=== PATIENT | female | born 1965 | race Hispanic/Latino ===

== ENCOUNTER 2017-12-29 20:03 | Observation (INO) | payer MEDICAID ==
[2017-12-29 20:37] VITALS: BMI 26.5
[2017-12-29] MEDS ORDERED: Albuterol-Ipratrop 3 mg / 0.5 (3 ml) UD IH STA (21:29)
[2017-12-29] MEDS ORDERED: Albuterol 0.083% Inhal Sol (2.5 mg/3 mL) UD INH STA (21:29)
[2017-12-29] MEDS ORDERED: Azithromycin 500MG/NS 250ml 500 MG/250 ML BAG IVPB STA (21:32)
[2017-12-29] MEDS ORDERED: cefTRIAXone 1 gm 1 GM/100 ML BAG IVPB STA (21:32)
--- NOTE | 2017-12-29 21:39 | ED PDOC ---
Arrival/HPI - General Chief Complaint: Shortness Of Breath Time Seen by Provider: 12/29/17 21:05 Historian: Patient - History of Present Illness Narrative History of Present Illness (Text): 12/29/17 21:33 52 year old female, whose past medical history includes, Asthma, Depression, COPD (noncompliant with medication), and Colitis, presents to the emergency department complaining of shortness of breath. Patient reports she is noncompliant with medication and following doctors advice in COPD treatment. Patient continues to smoke even though she has COPD. Patient reports chronic cough and yellow sputum, but denies any fever, chills, chest pain, abdominal pain, nausea, vomiting, diarrhea, urinary symptoms, back pain, neck pain, headache, dizziness, or any other complaints. PMD: Dr. Demetra Quiroz Symptom Onset: Gradual Symptom Course: Unchanged Activities at Onset: Light Context: Home Past Medical History - Provider Review Nursing Documentation Reviewed: Yes - Infectious Disease Hx of Infectious Diseases: None - Tetanus Immunization Tetanus Immunization: Unknown - Past Medical History Past Medical History: No Previous - Cardiac Hx Cardiac Disorders: No Hx Hypertension: No - Pulmonary Hx Respiratory Disorders: Yes Hx Asthma: Yes Hx Chronic Obstructive Pulmonary Disease (COPD): Yes - Neurological Hx Neurological Disorder: No Hx Seizures: No - HEENT Hx HEENT Disorder: No - Renal Hx Renal Disorder: No - Endocrine/Metabolic Hx Endocrine Disorders: No - Hematological/Oncological Hx Hepatitis C: Yes - Integumentary Hx Dermatological Disorder: No - Musculoskeletal/Rheumatological Hx Musculoskeletal Disorders: Yes Hx Arthritis: Yes Hx Back Pain: Yes Hx Rheumatoid Arthritis: Yes - Gastrointestinal Hx Gastrointestinal Disorders: Yes Hx Colitis: Yes - Genitourinary/Gynecological Hx Genitourinary Disorders: No Hx Sexually Transmitted Diseases: No - Psychiatric Hx Psychophysiologic Disorder: Yes Hx Anxiety: Yes Hx Depression: Yes Hx Substance Use: No - Past Surgical History Past Surgical History: No Previous - Anesthesia Hx Anesthesia: Yes Hx Anesthesia Reactions: No Hx Malignant Hyperthermia: No - Suicidal Assessment Feels Threatened In Home Enviroment: No Family/Social History - Physician Review Nursing Documentation Reviewed: Yes Family/Social History: No Known Family HX Smoking Status: Heavy Smoker > 10 Cigarettes Daily Hx Alcohol Use: No Hx Substance Use: No Substance used: cocaine iv Hx Substance Use Treatment: No Allergies/Home Meds Allergies/Adverse Reactions: Allergies ibuprofen Allergy (Verified 09/19/16 09:40) RASH Milk Containing Products Allergy (Verified 09/19/16 09:40) RASH naproxen [From Naprosyn] Allergy (Verified 09/19/16 09:40) RASH tomato Allergy (Verified 09/19/16 09:40) RASH wheat Allergy (Verified 09/19/16 09:40) RASH Home Medications: Home Meds Medication Instructions Recorded Confirmed Albuterol HFA [Ventolin HFA 90 2 puff IH PRN PRN 09/19/16 12/29/17 mcg/actuation (8 g)] Escitalopram [Lexapro] 20 mg PO DAILY 09/19/16 12/29/17 ALPRAZolam HALF TABLET [Xanax] 1 tab PO PRN PRN 12/29/17 12/29/17 Review of Systems - Physician Review All systems were reviewed & negative as marked: Yes - Review of Systems Constitutional: absent: Fevers, Other (Chills) Respiratory: SOB, Cough, Sputum Cardiovascular: absent: Chest Pain Gastrointestinal: absent: Diarrhea, Nausea, Vomiting Musculoskeletal: absent: Back Pain, Neck Pain Neurological: absent: Headache, Dizziness Physical Exam Vital Signs Reviewed: Yes Vital Signs Temp Pulse Resp BP Pulse Ox 12/29/17 21:31 97 12/29/17 21:25 98.4 F 70 18 140/76 92 L 12/29/17 21:05 20 12/29/17 20:04 88 20 94 L Temperature: Afebrile Blood Pressure: Normal Pulse: Regular Respiratory Rate: Normal Appearance: Positive for: Well-Appearing, Non-Toxic, Comfortable Pain Distress: None Mental Status: Positive for: Alert and Oriented X 3 - Systems Exam Head: Present: Atraumatic, Normocephalic Pupils: Present: PERRL Extroacular Muscles: Present: EOMI Conjunctiva: Present: Normal Mouth: Present: Moist Mucous Membranes Neck: Present: Normal Range of Motion Respiratory/Chest: Present: Clear to Auscultation, Good Air Exchange. No: Respiratory Distress, Accessory Muscle Use Cardiovascular: Present: Regular Rate and Rhythm, Normal S1, S2. No: Murmurs Abdomen: No: Tenderness, Distention, Peritoneal Signs Back: Present: Normal Inspection Upper Extremity: Present: Normal Inspection. No: Cyanosis, Edema Lower Extremity: Present: Normal Inspection. No: Edema Neurological: Present: GCS=15, CN II-XII Intact, Speech Normal Skin: Present: Warm, Dry, Normal Color. No: Rashes Psychiatric: Present: Alert, Oriented x 3, Normal Insight, Normal Concentration Medical Decision Making ED Course and Treatment: 12/29/17 21:42 Impression: 52 year old female presents complaining of shortness of breath associated with chronic cough and yellow sputum. Pt past medical history includes COPD noncompliant with medications. Plan: -- Arterial Blood Gas Shock Panel -- Labs -- Chest X-Ray -- Albuterol, Duoneb, Solu-Medrol, Zithromax -- Blood Culture, Urine Culture -- O2 via Nasal Cannula -- Urinalysis -- EKG -- Reassess and disposition Progress Notes: 12/29/17 23:40 Case discussed with [employer]oc[employer] and Dr. Chen who is who is aware and agrees with the plan. Accepts patient into his service. - Lab Interpretations Lab Results: 12/29/17 21:54 12/29/17 21:54 Lab Results 12/29/17 23:25: Urine Color Yellow, Urine Appearance Clear, Urine pH 6.0, Ur Specific [place] 1.020, Urine Protein Negative, Urine Glucose (UA) Negative, Urine Ketones Negative, Urine Blood Moderate H, Urine Nitrate Negative, Urine Bilirubin Negative, Urine Urobilinogen 0.2, Ur Leukocyte Esterase Trace H, Urine RBC Pending, Urine WBC Pending 12/29/17 22:44: pCO2 35, pO2 70.0 L, HCO3 24.3, ABG pH 7.45, ABG Total CO2 25.4 , ABG O2 Saturation 97.2, ABG Base Excess 0.7, ABG Potassium 2.8 L, Glucose 100 , Lactate 0.6 L, FiO2 21.0, Sodium 143.0, Chloride 111.0 H, Arterial Blood Potassium 2.8 L 12/29/17 21:54: Sodium 143, Potassium 3.6, Chloride 106, Carbon Dioxide 25, Anion Gap 15, BUN 9, Creatinine 0.7, Est GFR ( Amer) > 60, Est GFR (Non- Af Amer) > 60, Random Glucose 99, Calcium 9.4, Total Bilirubin 0.3, AST 32, ALT 39, Alkaline Phosphatase 60, Total Protein 7.7, Albumin 4.5, Globulin 3.3, Albumin/Globulin Ratio 1.4 12/29/17 21:54: PT 12.2, INR 1.07 12/29/17 21:54: WBC 8.9 D, RBC 4.00, Hgb 13.2, Hct 37.5, MCV 93.8, MCH 33.0, MCHC 35.2, RDW 12.6, Plt Count 279, MPV 10.0, Gran % 74.3 H, Lymph % (Auto) 18.4 L, Stone % (Auto) 5.4, Eos % (Auto) 1.7, Baso % (Auto) 0.2, Gran # 6.62 H, Lymph # (Auto) 1.6, Stone # (Auto) 0.5, Eos # (Auto) 0.2, Baso # (Auto) 0.02 - RAD Interpretation Radiology Orders: 12/29/17 21:29 CHEST PORTABLE [RAD] Stat - Medication Orders Current Medication Orders: Discontinued Medications Albuterol Sulfate (Albuterol 0.083% Inhal Lela (2.5 Mg/3 Ml) Ud) 5 mg INH STAT STA Stop: 12/29/17 21:30 Last Admin: 12/29/17 23:08 Dose: 5 mg Albuterol/Ipratropium (Duoneb 3 Mg/0.5 Mg (3 Ml) Ud) 3 ml IH STAT STA Stop: 12/29/17 21:30 Last Admin: 12/29/17 21:58 Dose: 3 ml Ceftriaxone Sodium (Rocephin 1 Gram Ivpb) 1 gm in 100 mls @ 200 mls/hr IVPB STAT STA PRN Reason: Protocol Stop: 12/29/17 22:01 Last Admin: 12/29/17 21:58 Dose: 200 mls/hr eMAR Start Stop Document 12/29/17 21:58 SS (Rec: 12/29/17 21:58 SS [facility] [id number]) Intravenous Solution Start Date 12/29/17 Start Time 21:58 Azithromycin (Zithromax 500mg In Ns) 500 mg in 250 mls @ 167 mls/hr IVPB STAT STA PRN Reason: Protocol Stop: 12/29/17 23:01 Last Admin: 12/29/17 23:08 Dose: 167 mls/hr eMAR Start Stop Document 12/29/17 23:08 SS (Rec: 12/29/17 23:09 SS [id number]) Intravenous Solution Start Date 12/29/17 Start Time 23:08 End Date 12/30/17 End time 00:38 Total Infusion Time 90 Methylprednisolone (Solu-Medrol) 125 mg IVP STAT STA Stop: 12/29/17 21:30 Last Admin: 12/29/17 21:58 Dose: 125 mg IVP Administration Document 12/29/17 21:58 SS (Rec: 12/29/17 21:58 SS [facility] [id number]) Charges for Administration # of IVP Administrations 1 Disposition/Present on Arrival - Present on Arrival Any Indicators Present on Arrival: No History of DVT/PE: No History of Uncontrolled Diabetes: No Urinary Catheter: No History of Decub. Ulcer: No History Surgical Site Infection Following: None - Disposition Have Diagnosis and Disposition been Completed?: Yes Diagnosis: Acute exacerbation of COPD with asthma, Hypoxia Disposition: HOME/ ROUTINE Disposition Time: 00:33 Patient Plan: Admission Condition: GOOD Referrals: Toya Quiroz MD [Primary Care Provider] - Follow up with primary Forms: Warp 9 (Greek)
[2017-12-29 22:14] LABS: BASO # 0.02 K/mm3 (0.0-2.0); BASO % 0.2 % (0.0-3.0); EOS # 0.2 (0.0-0.7); EOS % 1.7 % (1.5-5.0); GRAN # 6.62 (1.4-6.5); GRAN % 74.3 % (50.0-68.0); HEMOGLOBIN 13.2 g/dL (12.0-16.0); LYMPH # 1.6 (1.2-3.4); LYMPH % 18.4 % (22.0-35.0); MEAN CELL VOLUME 93.8 fl (80.0-105.0); MEAN CORPUSCULAR HGB CONC 35.2 g/dl (31.0-37.0); MONO # 0.5 (0.1-0.6); MONO % 5.4 % (1.0-6.0); RED CELL DISTRIBUTION WIDTH 12.6 % (11.5-14.5); WHITE BLOOD COUNT 8.9 10^3/ul (4.5-11.0)
[2017-12-29 22:19] LABS: ALB/GLOB RATIO 1.4 (1.1-1.8); ALBUMIN 4.5 g/dL (3.0-4.8); ALT/SGPT 39 U/L (7-56); AST/SGOT 32 U/L (14-36); BLOOD UREA NITROGEN 9 mg/dL (7-21); CALCIUM 9.4 mg/dL (8.4-10.5); GFR AFRICAN-AMERICAN > 60; GFR NON-AFRICAN AMERICAN > 60
[2017-12-29 22:27] LABS: PROTHROMBIN TIME 12.2 SECONDS (9.4-12.5)
[2017-12-29 22:28] LABS: INR 1.07 (0.93-1.08)
[2017-12-29 22:47] LABS: ARTERIAL BLOOD GAS HCO3 24.3 mmol/L (21-28); ARTERIAL BLOOD GAS O2 SAT 97.2 % (95-98); ARTERIAL BLOOD GAS PCO2 35 mm/Hg (35-45); ARTERIAL BLOOD GAS PH 7.45 (7.35-7.45); ARTERIAL BLOOD GAS TCO2 25.4 mmol.L (22-28)
[2017-12-30 00:15] LABS: URINE BILIRUBIN NEGATIVE (NEGATIVE); URINE BLOOD MODERATE (NEGATIVE); URINE GLUCOSE (UA) NEGATIVE (NEGATIVE); URINE LEUKOCYTE ESTERASE TRACE Leu/uL (NEGATIVE); URINE PROTEIN NEGATIVE mg/dL (<30 mg/dL); URINE UROBILINOGEN 0.2 E.U./dL (<1 E.U./dL)
[2017-12-30 00:23] LABS: URINE APPEARANCE CLEAR (CLEAR); URINE COLOR YELLOW (YELLOW)
[2017-12-30 00:40] LABS: URINE BACTERIA RARE (NEG); URINE EPITHELIAL CELLS 0 - 2 /hpf (0-5)
[2017-12-30] MEDS ORDERED: Albuterol-Ipratrop 3 mg / 0.5 (3 ml) UD IH PRN (02:02)
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
[2017-12-30] MEDS: guaiFENesin DM 200 mg-20 mg/10 ml UD PO PRN (02:37)
[2017-12-30] MEDS: Albuterol-Ipratrop 3 mg / 0.5 (3 ml) UD IH SCH ×5 (04:16→19:42)
[2017-12-30] MEDS: Pantoprazole 20 mg EC Tab PO SCH ×2 (06:05→17:39)
[2017-12-30 06:31] LABS: GRAN # 6.55 (1.4-6.5); GRAN % 94.4 % (50.0-68.0); HEMOGLOBIN 12.5 g/dL (12.0-16.0); LYMPH # 0.3 (1.2-3.4); LYMPH % 4.6 % (22.0-35.0); MEAN CORPUSCULAR HEMOGLOBIN 32.5 pg (25.0-35.0); MEAN CORPUSCULAR HGB CONC 34.5 g/dl (31.0-37.0); MONO # 0.1 (0.1-0.6); PLATELET COUNT 249 10^3/uL (120.0-450.0); RBC 3.85 10^6/uL (3.5-6.1); RED CELL DISTRIBUTION WIDTH 12.8 % (11.5-14.5); WHITE BLOOD COUNT 6.9 10^3/ul (4.5-11.0)
[2017-12-30 06:45] LABS: PHENCYCLIDINE, UR NEGATIVE (NEGATIVE)
[2017-12-30 06:47] LABS: ALB/GLOB RATIO 1.2 (1.1-1.8); ALBUMIN 4.2 g/dL (3.0-4.8); ALT/SGPT 35 U/L (7-56); AST/SGOT 29 U/L (14-36); BLOOD UREA NITROGEN 9 mg/dL (7-21); CALCIUM 9.5 mg/dL (8.4-10.5); GFR AFRICAN-AMERICAN > 60; GFR NON-AFRICAN AMERICAN > 60
[2017-12-30 07:02] LABS: BARBITURATES, UR NEGATIVE (NEGATIVE); BENZODIAZEPINES, UR NEGATIVE (NEGATIVE); OPIATES, UR NEGATIVE (NEGATIVE)
[2017-12-30 07:50] LABS: LYMPHOCYTE 1 % (22.0-35.0); MONOCYTE 3 % (1.0-6.0); NEUTROPHIL 96 % (50.0-70.0); PLATELET ESTIMATE NORMAL (NORMAL)
--- NOTE | 2017-12-30 08:21 | RAD ---
HISTORY: cough COMPARISON: Comparison made with prior study 09/21/2017 FINDINGS: LUNGS: Suspect minor bibasilar atelectasis. PLEURA: Minimal blunting both CP angles possibly due to small effusions CARDIOVASCULAR: Normal. OSSEOUS STRUCTURES: No significant abnormalities. VISUALIZED UPPER ABDOMEN: Normal. OTHER FINDINGS: None. IMPRESSION: Minimal blunting both CP angles possibly due to small effusions. Suspect minor bibasilar atelectasis.
[2017-12-30] MEDS: MethylPREDNISolone 40 mg Vial IVP SCH ×2 (10:48→21:53)
[2017-12-30] MEDS: levoFLOXacin 500 mg in D5W 500 MG/100 ML BAG IVPB SCH (10:49)
--- NOTE | 2017-12-30 21:38 | CARD ---
APPROVED REPORT EKG Measurement Heart [id number] <Conclusion> Sinus bradycardia Septal infarct, age undetermined Abnormal ECG
[2017-12-31] MEDS: Albuterol-Ipratrop 3 mg / 0.5 (3 ml) UD IH SCH ×4 (02:39→10:58)
[2017-12-31] MEDS: Pantoprazole 20 mg EC Tab PO SCH (05:35)
[2017-12-31 07:03] LABS: GRAN # 8.47 (1.4-6.5); GRAN % 80.7 % (50.0-68.0); LYMPH # 1.1 (1.2-3.4); LYMPH % 10.1 % (22.0-35.0); MEAN CELL VOLUME 95.5 fl (80.0-105.0); MEAN CORPUSCULAR HEMOGLOBIN 32.5 pg (25.0-35.0); MEAN PLATELET VOLUME 10.5 fl (7.0-11.0); MONO % 9.2 % (1.0-6.0); RED CELL DISTRIBUTION WIDTH 13.3 % (11.5-14.5); WHITE BLOOD COUNT 10.5 10^3/ul (4.5-11.0)
[2017-12-31 07:20] LABS: ALB/GLOB RATIO 1.3 (1.1-1.8); ALBUMIN 4.3 g/dL (3.0-4.8); ALT/SGPT 37 U/L (7-56); AST/SGOT 34 U/L (14-36); BLOOD UREA NITROGEN 13 mg/dL (7-21); CALCIUM 9.3 mg/dL (8.4-10.5); GFR AFRICAN-AMERICAN > 60; GFR NON-AFRICAN AMERICAN > 60
[2017-12-31 08:22] VITALS: BP 99/72; PULSE 70; RESP 18; TEMP 97.9; O2SAT 99
[2017-12-31] MEDS: guaiFENesin DM 200 mg-20 mg/10 ml UD PO PRN (08:41)
[2017-12-31] MEDS: levoFLOXacin 500 mg in D5W 500 MG/100 ML BAG IVPB SCH (09:04)
[2017-12-31] MEDS: MethylPREDNISolone 40 mg Vial IVP SCH (09:04)
--- NOTE | 2017-12-31 09:11 | CP.PCM.DIS ---
<David Lee - Last Filed: 12/31/17 12:10> Provider - Provider Date of Admission: 12/30/17 00:30 Attending physician: Ghislaine Jensen MD Primary care physician: Maynor Quiroz MD Time Spent in preparation of Discharge (in minutes): 45 Diagnosis - Discharge Diagnosis (1) Acute exacerbation of COPD with asthma Status: Chronic Priority: Medium (2) Anxiety Status: Chronic Priority: Medium (3) Depression Status: Chronic Priority: Medium (4) Tobacco abuse Status: Chronic Priority: Medium Hospital Course - Lab Results Lab Results: Most Recent Lab Values WBC 10.5 10^3/ul (4.5-11.0) D 12/31/17 06:40 RBC 4.00 10^6/uL (3.5-6.1) 12/31/17 06:40 Hgb 13.0 g/dL (12.0-16.0) 12/31/17 06:40 Hct 38.2 % (36.0-48.0) 12/31/17 06:40 MCV 95.5 fl (80.0-105.0) 12/31/17 06:40 MCH 32.5 pg (25.0-35.0) 12/31/17 06:40 MCHC 34.0 g/dl (31.0-37.0) 12/31/17 06:40 RDW 13.3 % (11.5-14.5) 12/31/17 06:40 Plt Count 287 10^3/uL (120.0-450.0) 12/31/17 06:40 MPV 10.5 fl (7.0-11.0) 12/31/17 06:40 Gran % 80.7 % (50.0-68.0) H 12/31/17 06:40 Lymph % (Auto) 10.1 % (22.0-35.0) L 12/31/17 06:40 [place] % (Auto) 9.2 % (1.0-6.0) H 12/31/17 06:40 Eos % (Auto) 0.0 % (1.5-5.0) L 12/31/17 06:40 Baso % (Auto) 0.0 % (0.0-3.0) 12/31/17 06:40 Gran # 8.47 (1.4-6.5) H 12/31/17 06:40 Lymph # (Auto) 1.1 (1.2-3.4) L 12/31/17 06:40 [place] # (Auto) 1.0 (0.1-0.6) H 12/31/17 06:40 Eos # (Auto) 0.0 (0.0-0.7) 12/31/17 06:40 Baso # (Auto) 0.00 K/mm3 (0.0-2.0) 12/31/17 06:40 Neutrophils % (Manual) 96 % (50.0-70.0) H 12/30/17 05:30 Lymphocytes % (Manual) 1 % (22.0-35.0) L 12/30/17 05:30 Monocytes % (Manual) 3 % (1.0-6.0) 12/30/17 05:30 Platelet Evaluation Normal (NORMAL) 12/30/17 05:30 PT 12.2 SECONDS (9.4-12.5) 12/29/17 21:54 INR 1.07 (0.93-1.08) 12/29/17 21:54 pCO2 35 mm/Hg (35-45) 12/29/17 22:44 pO2 70.0 mm/Hg (80-100) L 12/29/17 22:44 HCO3 24.3 mmol/L (21-28) 12/29/17 22:44 ABG pH 7.45 (7.35-7.45) 12/29/17 22:44 ABG Total CO2 25.4 mmol.L (22-28) 12/29/17 22:44 ABG O2 Saturation 97.2 % (95-98) 12/29/17 22:44 ABG Base Excess 0.7 mmol/L (-2.0-3.0) 12/29/17 22:44 ABG Potassium 2.8 mmol/L (3.6-5.2) L 12/29/17 22:44 Sodium 143.0 mmol/L (132-148) 12/29/17 22:44 Chloride 111.0 mmol/L (98-107) H 12/29/17 22:44 Glucose 100 mg/dl (65-105) 12/29/17 22:44 Lactate 0.6 mmol/L (0.7-2.1) L 12/29/17 22:44 FiO2 21.0 % 12/29/17 22:44 Sodium 142 mmol/L (132-148) 12/31/17 06:40 Potassium 4.6 mmol/L (3.6-5.0) 12/31/17 06:40 Chloride 109 mmol/L (98-107) H 12/31/17 06:40 Carbon Dioxide 25 mmol/L (21-33) 12/31/17 06:40 Anion Gap 13 (10-20) 12/31/17 06:40 BUN 13 mg/dL (7-21) 12/31/17 06:40 Creatinine 0.6 mg/dl (0.7-1.2) L 12/31/17 06:40 Est GFR ( Amer) > 60 12/31/17 06:40 Est GFR (Non-Af Amer) > 60 12/31/17 06:40 Random Glucose 112 mg/dL (70-110) H 12/31/17 06:40 Calcium 9.3 mg/dL (8.4-10.5) 12/31/17 06:40 Total Bilirubin 0.1 mg/dL (0.2-1.3) L 12/31/17 06:40 AST 34 U/L (14-36) 12/31/17 06:40 ALT 37 U/L (7-56) 12/31/17 06:40 Alkaline Phosphatase 58 U/L (38-126) 12/31/17 06:40 Total Protein 7.7 g/dL (5.8-8.3) 12/31/17 06:40 Albumin 4.3 g/dL (3.0-4.8) 12/31/17 06:40 Globulin 3.3 gm/dL 12/31/17 06:40 Albumin/Globulin Ratio 1.3 (1.1-1.8) 12/31/17 06:40 Arterial Blood Potassium 2.8 mmol/L (3.6-5.2) L 12/29/17 22:44 Urine Color Yellow (YELLOW) 12/29/17 23:25 Urine Appearance Clear (CLEAR) 12/29/17 23:25 Urine pH 6.0 (4.7-8.0) 12/29/17 23:25 Ur Specific [place] 1.020 (1.005-1.035) 12/29/17 23:25 Urine Protein Negative mg/dL (<30 mg/dL) 12/29/17 23:25 Urine Glucose (UA) Negative mg/dL (NEGATIVE) 12/29/17 23:25 Urine Ketones Negative mg/dL (NEGATIVE) 12/29/17 23:25 Urine Blood Moderate (NEGATIVE) H 12/29/17 23:25 Urine Nitrate Negative (NEGATIVE) 12/29/17 23:25 Urine Bilirubin Negative (NEGATIVE) 12/29/17 23:25 Urine Urobilinogen 0.2 E.U./dL (<1 E.U./dL) 12/29/17 23:25 Ur Leukocyte Esterase Trace Jose/uL (NEGATIVE) H 12/29/17 23:25 Urine RBC 1 - 3 /hpf (0-2) 12/29/17 23:25 Urine WBC 1 - 3 /hpf (0-6) 12/29/17 23:25 Ur Epithelial Cells 0 - 2 /hpf (0-5) 12/29/17 23:25 Urine Bacteria Rare (NEG) 12/29/17 23:25 Urine Opiates Screen Negative (NEGATIVE) 12/30/17 06:09 Urine Methadone Screen Negative (NEGATIVE) 12/30/17 06:09 Ur Barbiturates Screen Negative (NEGATIVE) 12/30/17 06:09 Ur Phencyclidine Scrn Negative (NEGATIVE) 12/30/17 06:09 Ur Amphetamines Screen Negative (NEGATIVE) 12/30/17 06:09 U Benzodiazepines Scrn Negative (NEGATIVE) 12/30/17 06:09 U Oth Cocaine Metabols Negative (NEGATIVE) 12/30/17 06:09 U Cannabinoids Screen Negative (NEGATIVE) 12/30/17 06:09 - Hospital Course Hospital Course: Patient is a 52 year old female with PMH COPD, asthma, depression, anxiety, who was admitted for evaluation and treatment of shortness of breath. With the use of physical examinations, lab work, and imaging the patient was diagnosed with and treated for COPD exacerbation along with the patients chronic medical conditions. During their hospital stay the patient underwent a chest xray was reviewed, appreciated, and utilized in the management of the patients clinical course. The chest xray showed minimal blunting both CP angles possibly due to small effusions and minor bibasilar atelectasis. Patient was treated with IV steroids, duonebs, robitussin, amongst other empiric/therapeutic medications. At this time the patient is medically stable for discharge. Patient understands and appreciates discharge plan. Patient instructed to follow up with primary care physicians and referrals within three to five days from discharge. Furthermore, the patient is instructed to take medications as prescribed and to return to emergency room for evaluation of intractable headache, fever, chills, dizziness, chest pain, shortness of breath, abdominal pain, nausea, vomiting, diarrhea, constipation, and urinary symptoms. This is a brief summary of the patients hospital course. Please see patient chart for full details. Discharge Exam - Head Exam Head Exam: ATRAUMATIC, NORMOCEPHALIC - Additional Findings Additional findings: - Constitutional Appears: Non-toxic, No Acute Distress - Head Exam Head Exam: ATRAUMATIC, NORMOCEPHALIC - Eye Exam Eye Exam: EOMI, PERRL. absent: Conjunctival injection, Nystagmus, Scleral icterus - ENT Exam ENT Exam: Mucous Membranes Moist - Neck Exam Neck exam: Positive for: Full Rom - Respiratory Exam Respiratory Exam: Diminished Breath Sounds bilaterally - Cardiovascular Exam Cardiovascular Exam: +S1, +S2. absent: Tachycardia, Clicks, Systolic Murmur - GI/Abdominal Exam GI & Abdominal Exam: Normal Bowel Sounds, Soft. absent: Distended, Firm, Guarding, Hernia, Mass, Organomegaly, Rebound, Rigid, Tenderness - Extremities Exam Extremities exam: Positive for: normal inspection. Negative for: calf tenderness, pedal edema - Neurological Exam Neurological exam: Patient is awake, alert, responds to verbal stimuli, answers questions appropriately, follows commands, and moves extremities past midline - Psychiatric Exam Psychiatric exam: Normal Affect, Normal Mood - Skin Skin Exam: Dry, Normal Color, Warm Discharge Plan - Discharge Medications Prescriptions: Azithromycin [Zithromax] 1 gm PO DAILY #1 packet Fluticasone/Salmeterol 250/50 [Advair Diskus] 1 dsk IH Q12 #1 inhaler Methylprednisolone [Medrol Dose Pack (21 tabs)] See Taper PO DAILY #1 packet Pantoprazole Sodium [Protonix] 40 mg PO DAILY #30 ect - Follow Up Plan Condition: GOOD Disposition: HOME/ ROUTINE Patient education suggested?: Yes Instructions: Anxiety, Adult (DC), Shortness of Breath (Dyspnea) (DC), Cough, Adult (DC), Exacerbation of COPD (DC) Additional Instructions: Patient Instructions: Take medications as prescribed. Follow up with PMD and referrals within three to five days from discharge. Return to the emergency room for evaluation of intractable headache, fever, chills, dizziness, chest pain, shortness of breath, abdominal pain, nausea, vomiting, diarrhea, constipation, and urinary symptoms Referrals: Maynor Quiroz MD [Primary Care Provider] - <Ghislaine Jensen - Last Filed: 12/31/17 17:05> Provider - Provider Date of Admission: 12/30/17 00:30 Attending physician: Ghislaine Jensen MD Primary care physician: Maynor Quiroz MD Hospital Course - Lab Results Lab Results: Most Recent Lab Values WBC 10.5 10^3/ul (4.5-11.0) D 12/31/17 06:40 RBC 4.00 10^6/uL (3.5-6.1) 12/31/17 06:40 Hgb 13.0 g/dL (12.0-16.0) 12/31/17 06:40 Hct 38.2 % (36.0-48.0) 12/31/17 06:40 MCV 95.5 fl (80.0-105.0) 12/31/17 06:40 MCH 32.5 pg (25.0-35.0) 12/31/17 06:40 MCHC 34.0 g/dl (31.0-37.0) 12/31/17 06:40 RDW 13.3 % (11.5-14.5) 12/31/17 06:40 Plt Count 287 10^3/uL (120.0-450.0) 12/31/17 06:40 MPV 10.5 fl (7.0-11.0) 12/31/17 06:40 Gran % 80.7 % (50.0-68.0) H 12/31/17 06:40 Lymph % (Auto) 10.1 % (22.0-35.0) L 12/31/17 06:40 [place] % (Auto) 9.2 % (1.0-6.0) H 12/31/17 06:40 Eos % (Auto) 0.0 % (1.5-5.0) L 12/31/17 06:40 Baso % (Auto) 0.0 % (0.0-3.0) 12/31/17 06:40 Gran # 8.47 (1.4-6.5) H 12/31/17 06:40 Lymph # (Auto) 1.1 (1.2-3.4) L 12/31/17 06:40 [place] # (Auto) 1.0 (0.1-0.6) H 12/31/17 06:40 Eos # (Auto) 0.0 (0.0-0.7) 12/31/17 06:40 Baso # (Auto) 0.00 K/mm3 (0.0-2.0) 12/31/17 06:40 Neutrophils % (Manual) 96 % (50.0-70.0) H 12/30/17 05:30 Lymphocytes % (Manual) 1 % (22.0-35.0) L 12/30/17 05:30 Monocytes % (Manual) 3 % (1.0-6.0) 12/30/17 05:30 Platelet Evaluation Normal (NORMAL) 12/30/17 05:30 PT 12.2 SECONDS (9.4-12.5) 12/29/17 21:54 INR 1.07 (0.93-1.08) 12/29/17 21:54 pCO2 35 mm/Hg (35-45) 12/29/17 22:44 pO2 70.0 mm/Hg (80-100) L 12/29/17 22:44 HCO3 24.3 mmol/L (21-28) 12/29/17 22:44 ABG pH 7.45 (7.35-7.45) 12/29/17 22:44 ABG Total CO2 25.4 mmol.L (22-28) 12/29/17 22:44 ABG O2 Saturation 97.2 % (95-98) 12/29/17 22:44 ABG Base Excess 0.7 mmol/L (-2.0-3.0) 12/29/17 22:44 ABG Potassium 2.8 mmol/L (3.6-5.2) L 12/29/17 22:44 Sodium 143.0 mmol/L (132-148) 12/29/17 22:44 Chloride 111.0 mmol/L (98-107) H 12/29/17 22:44 Glucose 100 mg/dl (65-105) 12/29/17 22:44 Lactate 0.6 mmol/L (0.7-2.1) L 12/29/17 22:44 FiO2 21.0 % 12/29/17 22:44 Sodium 142 mmol/L (132-148) 12/31/17 06:40 Potassium 4.6 mmol/L (3.6-5.0) 12/31/17 06:40 Chloride 109 mmol/L (98-107) H 12/31/17 06:40 Carbon Dioxide 25 mmol/L (21-33) 12/31/17 06:40 Anion Gap 13 (10-20) 12/31/17 06:40 BUN 13 mg/dL (7-21) 12/31/17 06:40 Creatinine 0.6 mg/dl (0.7-1.2) L 12/31/17 06:40 Est GFR ( Amer) > 60 12/31/17 06:40 Est GFR (Non-Af Amer) > 60 12/31/17 06:40 Random Glucose 112 mg/dL (70-110) H 12/31/17 06:40 Calcium 9.3 mg/dL (8.4-10.5) 12/31/17 06:40 Total Bilirubin 0.1 mg/dL (0.2-1.3) L 12/31/17 06:40 AST 34 U/L (14-36) 12/31/17 06:40 ALT 37 U/L (7-56) 12/31/17 06:40 Alkaline Phosphatase 58 U/L (38-126) 12/31/17 06:40 Total Protein 7.7 g/dL (5.8-8.3) 12/31/17 06:40 Albumin 4.3 g/dL (3.0-4.8) 12/31/17 06:40 Globulin 3.3 gm/dL 12/31/17 06:40 Albumin/Globulin Ratio 1.3 (1.1-1.8) 12/31/17 06:40 Arterial Blood Potassium 2.8 mmol/L (3.6-5.2) L 12/29/17 22:44 Urine Color Yellow (YELLOW) 12/29/17 23:25 Urine Appearance Clear (CLEAR) 12/29/17 23:25 Urine pH 6.0 (4.7-8.0) 12/29/17 23:25 Ur Specific [place] 1.020 (1.005-1.035) 12/29/17 23:25 Urine Protein Negative mg/dL (<30 mg/dL) 12/29/17 23:25 Urine Glucose (UA) Negative mg/dL (NEGATIVE) 12/29/17 23:25 Urine Ketones Negative mg/dL (NEGATIVE) 12/29/17 23:25 Urine Blood Moderate (NEGATIVE) H 12/29/17 23:25 Urine Nitrate Negative (NEGATIVE) 12/29/17 23:25 Urine Bilirubin Negative (NEGATIVE) 12/29/17 23:25 Urine Urobilinogen 0.2 E.U./dL (<1 E.U./dL) 12/29/17 23:25 Ur Leukocyte Esterase Trace Jose/uL (NEGATIVE) H 12/29/17 23:25 Urine RBC 1 - 3 /hpf (0-2) 12/29/17 23:25 Urine WBC 1 - 3 /hpf (0-6) 12/29/17 23:25 Ur Epithelial Cells 0 - 2 /hpf (0-5) 12/29/17 23:25 Urine Bacteria Rare (NEG) 12/29/17 23:25 Urine Opiates Screen Negative (NEGATIVE) 12/30/17 06:09 Urine Methadone Screen Negative (NEGATIVE) 12/30/17 06:09 Ur Barbiturates Screen Negative (NEGATIVE) 12/30/17 06:09 Ur Phencyclidine Scrn Negative (NEGATIVE) 12/30/17 06:09 Ur Amphetamines Screen Negative (NEGATIVE) 12/30/17 06:09 U Benzodiazepines Scrn Negative (NEGATIVE) 12/30/17 06:09 U Oth Cocaine Metabols Negative (NEGATIVE) 12/30/17 06:09 U Cannabinoids Screen Negative (NEGATIVE) 12/30/17 06:09 Attending/Attestation - Attestation I have personally seen and examined this patient.: Yes I have fully participated in the care of the patient.: Yes I have reviewed all pertinent clinical information, including history, physical exam and plan: Yes Notes (Text): 12/31/17 17:03 Attending note; Patient seen and examined with resident. Patient is a 52-year-old female with a history of chronic lung disease, questionable asbestosis exposure, COPD is admitted with acute COPD exacerbation. Treated with oxygen, DuoNeb, IV Solu-Medrol. Cough is improving. Chest x-ray shows atelectasis. Active smoking; smoking cessation is strongly advised. Prescription for NicoDerm patch given. Patient is clinically improved. Patient is strongly advised to follow-up with pulmonary as outpatient. She and follows up with PMD Dr. maynor Quiroz. The diagnosis and follow-up plan discussed with patient in detail. 12/31/17 17:04
== END 2017-12-31 13:55 | disposition home or self-care (01) ==
LOC: ED 20:03 → ERH 12-30 00:30 → INTOOBSV 12-30 00:30 → ERH 12-30 01:08 → 3RNO 12-30 01:49
PROVIDERS: ADMIT Internal Medicine; ATTEND Internal Medicine
DX: J44.1 Chronic obstructive pulmonary disease with (acute) exacerbation (principal); J45.901 Unspecified asthma with (acute) exacerbation; Z91.14 Patient's other noncompliance with medication regimen; R09.02 Hypoxemia; F17.210 Nicotine dependence, cigarettes, uncomplicated; F41.9 Anxiety disorder, unspecified; M06.9 Rheumatoid arthritis, unspecified; B19.20 Unspecified viral hepatitis C without hepatic coma; F32.9 Major depressive disorder, single episode, unspecified
CPT/HCPCS: 36415; 71045; 80053; 80324; 80345; 80346; 80349; 80353; 80358; 80361; 81001; 81003; 82803; 83992; 85025; 85610; 87040; 87086; 93005; 94640; 94760; 96365; 96375; 99285; G0378; J0456; J0696; J2920; J2930